=== PATIENT | male | born 1990 | race Caucasian/White ===

== ENCOUNTER 2019-01-04 12:04 | Emergency (ER) | payer SELFPAY | END 2019-01-04 14:29 | disposition home or self-care (01) | LOC: FER 12:04 ==

== ENCOUNTER 2019-05-30 18:12 | Emergency (ER) | payer SELFPAY ==
[2019-05-30 18:29] VITALS: BP 148/97; PULSE 69; TEMP 97.8; BMI 30.7
[2019-05-30] MEDS ORDERED: SODIUM CHLORIDE 1,000 ML IV SCH (18:30)
--- NOTE | 2019-05-30 18:33 | PDOC ---
History of Present Illness - General Chief Complaint: Pain Stated Complaint: RLA PAIN FOR SEVERAL MONTHS Time Seen by Provider: 05/30/19 18:23 History Source: Patient Exam Limitations: No Limitations - History of Present Illness Travel History: No Initial Comments: 05/30/19 18:30 28 y/o male with RLQ pain on/off for 3-4 months, worse today. No N/V/d/C. Denies fall or trauma. Saw doctor for this in the past and told it was not a hernia. Denies back pain, hematuria or dysuria. No fever or chills. Hx of colitis. Took Advil. No hx of stones in past. Pain Radiation: reports: no radiation Past History - Past Medical History Allergies/Adverse Reactions: Allergies Allergy/AdvReac Type Severity Reaction Status Date / Time No Known Allergies Allergy Verified 05/30/19 18:14 Home Medications: Ambulatory Orders NK [No Known Home Medication] 05/30/19 Asthma: Yes COPD: No GI Disorders: Yes (Ulcerative colitis.) Thyroid Disease: Yes (HYPOPARATHYROIDISM AN INFANT) - Surgical History Abdominal Surgery: (colonoscopy) - Psycho Social/Smoking Cessation Hx Smoking History: Never smoked Hx Alcohol Use: Yes (SOCIAL) Drug/Substance Use Hx: Yes (MARIJUANA) Substance Use Type: None Review of Systems - Review of Systems Able to Perform ROS?: Yes Is the patient limited [place] proficient: No Constitutional: No: Chills, Fever Respiratory: No: Cough, Shortness of Breath Cardiac (ROS): No: Chest Pain ABD/GI: No: Abdominal Distended, Diarrhea, Nausea, Vomiting : No: Burning, Dysuria, Hematuria All Other Systems: Reviewed and Negative *Physical Exam - Physical Exam General Appearance: Yes: Nourished, Appropriately Dressed. No: Apparent Distress HEENT: positive: EOMI, PRAVEENA, Normal ENT Inspection, Normal Voice Neck: positive: Trachea midline, Normal Thyroid, Supple. negative: Tender, Rigid Respiratory/Chest: positive: Lungs Clear, Normal Breath Sounds. negative: Chest Tender, Respiratory Distress Cardiovascular: positive: Regular Rhythm, Regular Rate, S1, S2. negative: Edema , JVD, Murmur Vascular Pulses: Femoral (R): 4+, Femoral (L): 4+, Carotid (R): 4+, Carotid (L) : 4+, Dorsalis-Pedis (R): 4+, Doralis-Pedis (L): 4+ Gastrointestinal/Abdominal: positive: Normal Bowel Sounds, Tender (RLQ tenderness, no RUQ, LUQ, or LLQ tenderness +BS), Flat, Soft. negative: Organomegaly, Pulsatile Mass Lymphatic: negative: Adenopathy, Tenderness, Other Musculoskeletal: positive: Normal Inspection. negative: CVA Tenderness Extremity: positive: Normal Capillary Refill, Normal Inspection, Normal Range of Motion Integumentary: positive: Normal Color, Dry, Warm Neurologic: positive: environmental compliance inspector II-XII NML intact, Fully Oriented, Alert, Normal Mood/ Affect, Normal Response, Motor Strength 5/ ED Progress Note - Progress Note Progress Note: 05/30/19 18:32 28 y/o male with RLQ tenderness, will obtain labs and CT abd/pelvis to r/o appendicitis. Case will be endorsed to Dr. Hester at 1900. Discharge - Discharge Information Problems reviewed: Yes Clinical Impression/Diagnosis: Abdominal pain Qualifiers: Abdominal location: right lower quadrant Qualified Code(s): R10.31 - Right lower quadrant pain - Follow up/Referral - Patient Discharge Instructions - Post Discharge Activity
[2019-05-30 19:27] LABS: BASO % 0.6 % (0-2.0); EOS % 2.7 % (0-4.5); HEMATOCRIT 50.1 % (35.4-49); HEMOGLOBIN 17.2 GM/dl (11.7-16.9); LYMPH % 24.5 % (8-40); MCH 31.2 pg (25.7-33.7); MCHC 34.3 g/dl (32.0-35.9); MEAN CELL VOLUME 90.9 fl (80-96); MEAN PLT VOLUME 7.7 fl (7.5-11.1); MONO % 5.5 % (3.8-10.2); NEUT % 66.7 % (42.8-82.8); PLATELET COUNT 242 K/MM3 (134-434); RBC 5.52 M/mm3 (4.00-5.60); RDW 12.1 % (11.9-15.9); WHITE BLOOD COUNT 9.1 K/mm3 (4.0-10.8)
[2019-05-30 19:35] LABS: ALBUMIN 5.2 g/dl (3.4-5.0); CALCIUM 9.9 mg/dl (8.5-10); POTASSIUM 3.6 mmol/L (3.5-5.1); TOT PROT 7.6 g/dl (6.4-8.2)
[2019-05-30] MEDS ORDERED: AMOX TR/POT CLAV 875MG/125MG TABLETS (FP) PO ONE (21:29)
[2019-05-30] MEDS ORDERED: AMOX TR/POT CLAV 875MG/125MG TABLETS (FP) ONE (21:32)
--- NOTE | 2019-05-30 21:32 | PDOC ---
*Physical Exam - Vital Signs Last Vital Signs Temp Pulse Resp BP Pulse Ox 97.8 F 69 20 148/97 100 05/30/19 18:13 05/30/19 18:13 05/30/19 18:13 05/30/19 18:13 05/30/19 18:13 ED Treatment Course - LABORATORY CBC & Chemistry Diagram: 05/30/19 19:10 05/30/19 19:10 - ADDITIONAL ORDERS Additional order review: Laboratory Results 05/30/19 05/30/19 19:10 19:10 Sodium 140 Potassium 3.6 Chloride 101 Carbon Dioxide 28 Anion Gap 11 BUN 15.0 Creatinine 1.0 Est GFR (CKD-EPI)AfAm 117.36 Est GFR (CKD-EPI)NonAf 101.26 Random Glucose 88 Calcium 9.9 Total Bilirubin 1.0 AST 30 ALT 64 H Alkaline Phosphatase 43 L Total Protein 7.6 Albumin 5.2 H Urine Color Yellow Urine Appearance Clear Urine pH 5.5 Urine Protein Negative Urine Glucose (UA) Negative Urine Ketones Negative Urine Blood Trace-intact Urine Nitrite Negative Urine Bilirubin Negative Urine Urobilinogen 0.2 Ur Leukocyte Esterase Negative Urine RBC 0-2 05/30/19 19:10 RBC 5.52 MCV 90.9 MCHC 34.3 RDW 12.1 MPV 7.7 Neutrophils % 66.7 Lymphocytes % 24.5 Monocytes % 5.5 Eosinophils % 2.7 Basophils % 0.6 Medical Decision Making - Medical Decision Making 05/30/19 21:[address] with chronic low grade diverticulitis will cover with abx gi fu Discharge - Discharge Information Problems reviewed: Yes Clinical Impression/Diagnosis: Diverticulitis large intestine Qualifiers: Diverticulitis bleeding: without bleeding Diverticulitis complication: without perforation or abscess Qualified Code(s): K57.32 - Diverticulitis of large intestine without perforation or abscess without bleeding Condition: Good Disposition: HOME - Follow up/Referral Referrals: Jeremías Herrera DO [Staff Physician] - Call tomorrow - Patient Discharge Instructions - Post Discharge Activity
== END 2019-05-30 21:38 | disposition home or self-care (01) ==
LOC: FER 18:12
PROC: 3E0337Z Introduction of Electrolytic and Water Balance Substance into Peripheral Vein, Percutaneous Approach (ICD-10-PCS; principal; 2019-05-30)
DX: R10.31 Right lower quadrant pain (principal); J45.909 Unspecified asthma, uncomplicated; K51.90 Ulcerative colitis, unspecified, without complications; E07.9 Disorder of thyroid, unspecified
CPT/HCPCS: 36415; 74177-TC; 80053; 81003; 81015; 85025; 99282-25; J7030

== ENCOUNTER 2022-05-28 15:43 | Emergency (ER) | payer SELFPAY ==
[2022-05-28 16:13] VITALS: BP 144/90; PULSE 90; RESP 16; TEMP 98.8; BMI 32.1
[2022-05-28] MEDS ORDERED: KETOROLAC TROMETHAMINE 15 MG/ML VIAL IVPUSH ONE (17:50)
[2022-05-28] MEDS ORDERED: ONDANSETRON 4 MG/2 ML VIAL IVPUSH ONE (17:50)
[2022-05-28] MEDS ORDERED: ACETAMINOPHEN 1000 MG/100 ML BAG IVPB ONE (17:52)
[2022-05-28] MEDS ORDERED: SODIUM CHLORIDE 0.9% 500 ML INFUS.BAG IV ONE (17:52)
[2022-05-28] MEDS ORDERED: ACETAMINOPHEN INJECTION 100 ML IVPB ONE (17:56)
[2022-05-28] MEDS ORDERED: ONDANSETRON 4 MG/2 ML VIAL ONE (17:56)
[2022-05-28] MEDS ORDERED: KETOROLAC TROMETHAMINE 15 MG/ML VIAL ONE (17:57)
[2022-05-28 18:37] LABS: HEMATOCRIT 46.9 % (35.4-49); MCH 30.4 pg (25.7-33.7); MCHC 34.2 g/dl (32.0-35.9); MEAN CELL VOLUME 88.8 fl (80-96); MEAN PLT VOLUME 7.5 fl (7.5-11.1); PLATELET COUNT 212.8 10^3/uL (134-434); RBC 5.28 10^6/uL (4.00-5.60); RDW 14.2 % (11.9-15.9)
[2022-05-28 18:45] LABS: ALBUMIN 4.4 g/dl (3.4-5.0); BILIRUBIN,TOTAL 0.9 mg/dl (0.2-1); CALCIUM 8.9 mg/dl (8.5-10); CREATININE 0.8 mg/dl (0.55-1.3); TOT PROT 7.1 g/dl (6.4-8.2)
[2022-05-28 18:57] LABS: PLATELET ESTIMATE ADEQUATE
== END 2022-05-28 19:53 | disposition home or self-care (01) ==
LOC: FER 15:43
PROC: 3E0333Z Introduction of Anti-inflammatory into Peripheral Vein, Percutaneous Approach (ICD-10-PCS; principal; 2022-05-28)
PROC: 3E0333Z Introduction of Anti-inflammatory into Peripheral Vein, Percutaneous Approach (ICD-10-PCS; 2022-05-28)
PROC: 3E033GC Introduction of Other Therapeutic Substance into Peripheral Vein, Percutaneous Approach (ICD-10-PCS; 2022-05-28)
DX: G43.909 Migraine, unspecified, not intractable, without status migrainosus (principal)
CPT/HCPCS: 36415; 76705-TC; 80053; 82550; 83690; 85025; 99284-25

== ENCOUNTER 2023-03-19 08:35 | Emergency (ER) | payer BC ==
[2023-03-19 08:42] VITALS: BP 150/89; PULSE 88; RESP 18; TEMP 99.4; BMI 33.9
[2023-03-19] MEDS ORDERED: ACETAMINOPHEN 500 MG TABLET (FP) PO ONE (08:46)
[2023-03-19] MEDS ORDERED: KETOROLAC TROMETHAMINE 15 MG/ML VIAL IVPUSH ONE (08:46)
[2023-03-19] MEDS ORDERED: SODIUM CHLORIDE 0.9% 500 ML INFUS.BAG IV ONE (08:46)
[2023-03-19] MEDS ORDERED: KETOROLAC TROMETHAMINE 15 MG/ML VIAL ONE (08:50)
[2023-03-19] MEDS ORDERED: ACETAMINOPHEN 500 MG TABLET (FP) ONE (08:50)
[2023-03-19 09:37] LABS: HEMATOCRIT 44.1 % (35.4-49); HEMOGLOBIN 15.1 G/dL (11.7-16.9); MCH 30.6 pg (25.7-33.7); MCHC 34.2 g/dl (32.0-35.9); MEAN CELL VOLUME 89.7 fl (80-96); MEAN PLT VOLUME 7.8 fl (7.5-11.1); PLATELET COUNT 243.3 10^3/uL (134-434); RBC 4.92 10^6/uL (4.00-5.60); RDW 13.2 % (11.9-15.9); WHITE BLOOD COUNT 11.3 10^3/uL (4.0-10.8)
[2023-03-19 09:41] LABS: ALBUMIN 4.7 g/dl (3.4-5.0); BLOOD UREA NITROGEN 14.4 mg/dl (7-18); CALCIUM 9.3 mg/dl (8.5-10.1); CREATININE 0.9 mg/dl (0.6-1.3); POTASSIUM 4.1 mmol/L (3.5-5.1); SGOT/AST 21.2 U/L (15-37); SGPT/ALT 33.5 U/L (7-52)
[2023-03-19 10:39] LABS: PLATELET ESTIMATE ADEQUATE
[2023-03-19 11:52] LABS: BILIRUBIN,TOTAL 1.2 mg/dL (0.2-1)
== END 2023-03-19 10:56 | disposition home or self-care (01) ==
LOC: FER 08:35
PROC: 3E033NZ Introduction of Analgesics, Hypnotics, Sedatives into Peripheral Vein, Percutaneous Approach (ICD-10-PCS; principal; 2023-03-19)
DX: R10.31 Right lower quadrant pain (principal); R10.32 Left lower quadrant pain; K57.92 Diverticulitis of intestine, part unspecified, without perforation or abscess without bleeding
CPT/HCPCS: 36415; 74177-TC; 80053; 83605; 83690; 85027; 86140; 99285-25; Q9967

== ENCOUNTER 2023-07-19 08:02 | Emergency (ER) | payer BC ==
[2023-07-19 08:16] VITALS: BP 122/81; PULSE 86; RESP 18; TEMP 99.4; BMI 32.5
[2023-07-19] MEDS ORDERED: ACETAMINOPHEN 325 MG TABLET (FP) PO ONE (08:30)
[2023-07-19] MEDS ORDERED: ACETAMINOPHEN 325 MG TABLET (FP) ONE (08:34)
== END 2023-07-19 08:48 | disposition home or self-care (01) ==
LOC: FER 08:02
DX: S46.911A Strain of unspecified muscle, fascia and tendon at shoulder and upper arm level, right arm, initial encounter (principal); J06.9 Acute upper respiratory infection, unspecified; M25.511 Pain in right shoulder; R07.89 Other chest pain; R09.81 Nasal congestion; R50.9 Fever, unspecified; R05.9 Cough, unspecified; X50.0XXA Overexertion from strenuous movement or load, initial encounter; Y93.89 Activity, other specified; Z20.822 Contact with and (suspected) exposure to COVID-19
CPT/HCPCS: 0241U-QW; 99283-25

== ENCOUNTER 2023-11-17 07:18 | Inpatient (IN) | payer BC ==
[2023-11-17] MEDS ORDERED: ACETAMINOPHEN INJECTION 100 ML IVPB ONE (07:48)
[2023-11-17] MEDS ORDERED: morphine SULFATE 4 MG/ML VIAL ONE ×2 (07:48→09:50)
[2023-11-17] MEDS ORDERED: ONDANSETRON 4 MG/2 ML VIAL ONE (07:48)
[2023-11-17] MEDS: LACTATED RINGERS SOLUTION 1000 ML INFUS.BAG IV ONE (08:02)
[2023-11-17] MEDS: morphine CARPU-JECT 4 MG/1 ML DISP.SYRIN IVPUSH ONE ×2 (08:02→09:55)
[2023-11-17] MEDS: ONDANSETRON 4 MG/2 ML VIAL IVPUSH ONE (08:03)
[2023-11-17] MEDS: ACETAMINOPHEN 1000 MG/100 ML BAG IVPB ONE (08:03)
[2023-11-17 08:25] LABS: INR 1.12 (0.83-1.09); PROTHROMBIN TIME (PATIENT) 12.7 SEC (9.7-13.0)
[2023-11-17 08:27] LABS: ACTIVATED PTT 34.6 SECONDS (25.2-36.5); HEMATOCRIT 44.8 % (35.4-49); HEMOGLOBIN 15.1 G/dL (11.7-16.9); MCH 30.4 pg (25.7-33.7); MCHC 33.7 g/dl (32.0-35.9); MEAN CELL VOLUME 90.1 fl (80-96); MEAN PLT VOLUME 8.3 fl (7.5-11.1); PLATELET COUNT 214.9 10^3/uL (134-434); RBC 4.97 10^6/uL (4.00-5.60); WHITE BLOOD COUNT 11.7 10^3/uL (4.0-10.8)
[2023-11-17 08:34] LABS: ALBUMIN 4.6 g/dl (3.4-5.0); ALK PHOS 52 U/L (45-117); ANION GAP 10 mmol/L (4-13); BILIRUBIN,TOTAL 1.6 mg/dl (0.2-1); CALCIUM 9.4 mg/dl (8.5-10.1); CHLORIDE 103 mmol/L (98-107); CO2 27 mmol/L (21-32); CREATININE 1.1 mg/dl (0.6-1.3); GLUCOSE,RANDOM 94 mg/dl (74-106); POTASSIUM 3.6 mmol/L (3.5-5.1); SGOT/AST 14 U/L (15-37); SGPT/ALT 33 U/L (7-52); SODIUM 140 mmol/L (136-145); TOT PROT 6.9 g/dl (6.4-8.2)
[2023-11-17 09:16] LABS: EPITHELIAL CELLS 0-5 /hpf; URINE MUCUS MODERATE
[2023-11-17 09:17] LABS: PLATELET ESTIMATE ADEQUATE
[2023-11-17] MEDS: CIPROFLOXACIN 400 MG/D5W 400 MG/200 ML IVPB IVPB ONE (10:24)
[2023-11-17] MEDS ORDERED: CIPROFLOXACIN 400 MG/D5W 400 MG/200 ML IVPB IVPB ONE (10:24)
[2023-11-17] MEDS ORDERED: HYDROmorphone HCL/PF 1 MG/ML VIAL ONE (11:17)
[2023-11-17] MEDS: HYDROmorphone HCl 2 MG/ML VIAL IVPUSH ONE (11:21)
[2023-11-17] MEDS: DEXTROSE 5%-0.45% SALINE 1,000 ML IV SCH (13:02)
[2023-11-17 13:05] VITALS: RESP 18
[2023-11-17] MEDS: ACETAMINOPHEN 1000 MG/100 ML BAG IVPB PRN (13:54)
[2023-11-17 19:26] VITALS: BMI 34.2
[2023-11-18 08:12] LABS: HEMATOCRIT 42.3 % (35.4-49); HEMOGLOBIN 14.4 G/dL (11.7-16.9); MCH 30.5 pg (25.7-33.7); MCHC 34.1 g/dl (32.0-35.9); MEAN CELL VOLUME 89.2 fl (80-96); MEAN PLT VOLUME 8.1 fl (7.5-11.1); PLATELET COUNT 212.7 10^3/uL (134-434); RBC 4.74 10^6/uL (4.00-5.60); RDW 13.2 % (11.9-15.9); WHITE BLOOD COUNT 8.1 10^3/uL (4.0-10.8)
[2023-11-18 08:35] LABS: INR 1.09 (0.83-1.09); PROTHROMBIN TIME (PATIENT) 12.4 SEC (9.7-13.0)
[2023-11-18] MEDS: KETOROLAC TROMETHAMINE 30 MG/1 ML VIAL IVPUSH PRN (08:50)
[2023-11-18 09:18] LABS: ALBUMIN 4.2 g/dl (3.4-5.0); ALK PHOS 50 U/L (45-117); ANION GAP 8 mmol/L (4-13); CALCIUM 9.1 mg/dl (8.5-10.1); CHLORIDE 105 mmol/L (98-107); CO2 29 mmol/L (21-32); CREATININE 0.9 mg/dl (0.6-1.3); GLUCOSE,RANDOM 95 mg/dl (74-106); MAGNESIUM 2.3 mg/dL (1.8-2.4); PHOSPHOROUS 3.1 (2.5-4.9); SGOT/AST 15 U/L (15-37); SGPT/ALT 26 U/L (7-52); SODIUM 142 mmol/L (136-145); TOT PROT 6.3 g/dl (6.4-8.2)
[2023-11-18] MEDS: CEFTRIAXONE 1 GM in DEXTROSE 5%-WATER - 50 ML IVPB SCH (10:02)
[2023-11-19] MEDS: PIPERACILLIN/TAZOB 3.375 GM 3.375 GM in DEXTROSE 5%-WATER - 50 ML IVPB SCH (13:51)
[2023-11-20 06:38] VITALS: PULSE 50
[2023-11-20 08:28] LABS: HEMATOCRIT 42.3 % (35.4-49); HEMOGLOBIN 14.7 G/dL (11.7-16.9); MCH 30.9 pg (25.7-33.7); MCHC 34.8 g/dl (32.0-35.9); MEAN PLT VOLUME 7.9 fl (7.5-11.1); PLATELET COUNT 233.3 10^3/uL (134-434); RBC 4.75 10^6/uL (4.00-5.60); RDW 12.9 % (11.9-15.9); WHITE BLOOD COUNT 6.2 10^3/uL (4.0-10.8)
[2023-11-20 09:07] LABS: ALBUMIN 4.2 g/dl (3.4-5.0); ALK PHOS 46 U/L (45-117); ANION GAP 7 mmol/L (4-13); BILIRUBIN,TOTAL 0.6 mg/dl (0.2-1); CALCIUM 9.1 mg/dl (8.5-10.1); CHLORIDE 109 mmol/L (98-107); CO2 26 mmol/L (21-32); CREATININE 0.9 mg/dl (0.6-1.3); GLUCOSE,RANDOM 108 mg/dl (74-106); POTASSIUM 3.9 mmol/L (3.5-5.1); SGOT/AST 17 U/L (15-37); SGPT/ALT 27 U/L (7-52); SODIUM 142 mmol/L (136-145); TOT PROT 6.3 g/dl (6.4-8.2)
[2023-11-20 11:59] VITALS: BP 128/74
[2023-11-20 12:15] VITALS: TEMP 98.4
== END 2023-11-20 14:01 | disposition home or self-care (01) | DRG 392 ==
LOC: FER 07:18 → FM/S 10:38
PROVIDERS: ADMIT Internal Medicine
DX: K57.20 Diverticulitis of large intestine with perforation and abscess without bleeding (principal); E80.6 Other disorders of bilirubin metabolism; E66.9 Obesity, unspecified; Z68.34 Body mass index [BMI] 34.0-34.9, adult
CPT/HCPCS: 36415; 74177-TC; 80053; 81003; 81015; 83605; 83690; 83735; 84100; 85027; 85610; 85730; 86140; 87086; 99285-25; J0131; Q9967

== ENCOUNTER 2024-01-18 10:48 | Inpatient (IN) | payer OTHER, BC ==
[2024-01-18] MEDS ORDERED: ACETAMINOPHEN INJECTION 100 ML IVPB ONE ×2 (12:19→22:21)
[2024-01-18 12:22] LABS: BASO % 0.3 % (0-2.0); EOS % 0.4 % (0-4.5); HEMATOCRIT 44.1 % (35.4-49); HEMOGLOBIN 15.5 GM/dL (11.7-16.9); LYMPH % 4.2 % (8-40); MCH 30.5 pg (25.7-33.7); MCHC 35.1 g/dl (32.0-35.9); MEAN PLT VOLUME 7.5 fl (7.5-11.1); NEUT % 89.1 % (42.8-82.8); PLATELET COUNT 203 10^3/uL (134-434); RBC 5.07 M/mm3 (4.00-5.60); RDW 14.1 % (11.9-15.9); WHITE BLOOD COUNT 13.5 K/mm3 (4.0-10.0)
[2024-01-18] MEDS: ACETAMINOPHEN 1000 MG/100 ML BAG IVPB ONE (12:27)
[2024-01-18 12:31] LABS: INR 1.04 (0.83-1.09); PROTHROMBIN TIME (PATIENT) 11.9 SEC (9.7-13.0)
[2024-01-18 12:34] LABS: ACTIVATED PTT 32.1 SECONDS (25.2-36.5)
[2024-01-18 12:47] LABS: BLOOD UREA NITROGEN 15.1 mg/dL (7-18); CALCIUM 9.2 mg/dL (8.5-10.1)
[2024-01-18 12:48] LABS: ALBUMIN 4.4 g/dl (3.4-5.0)
[2024-01-18 12:50] LABS: CREATININE 1.2 mg/dL (0.55-1.3)
[2024-01-18 12:52] LABS: BILIRUBIN,TOTAL 1.6 mg/dL (0.2-1); TOT PROT 7.2 g/dl (6.4-8.2)
[2024-01-18] MEDS ORDERED: CEFTRIAXONE 1 GM/50 ML BAG ONE (17:24)
[2024-01-18] MEDS: CEFTRIAXONE 1,000 MG in DEXTROSE 5%-WATER - 50 ML IVPB ONE (17:35)
[2024-01-18] MEDS: LACTATED RINGERS SOLUTION 1,000 ML/1,000 ML INFUS.BAG IV SCH (19:17)
[2024-01-18 22:26] LABS: PH,URINE 5.5 (5.0-8.0); URINE APPEARANCE CLEAR; URINE BILIRUBIN NEGATIVE (NEGATIVE); URINE COLOR YELLOW; URINE GLUCOSE (UA) NEGATIVE (NEGATIVE); URINE KETONE NEGATIVE (NEGATIVE); URINE LEUK ESTERASE NEGATIVE (NEGATIVE); URINE NITRITE NEGATIVE (NEGATIVE); URINE PROTEIN NEGATIVE (NEGATIVE)
[2024-01-18] MEDS: ACETAMINOPHEN 1000 MG/100 ML BAG IVPB PRN (22:40)
[2024-01-19] MEDS ORDERED: INDOCYANINE GREEN 25 MG/10 ML VIAL IVPUSH ONE (07:18)
[2024-01-19] MEDS ORDERED: BUPIVACAINE HCL/PF 0.25% (2.5MG/ML) 10 ML VIAL ONE (07:18)
[2024-01-19] MEDS ORDERED: cefOXitin SODIUM 2 GM VIAL (RESTRICTED TO ID) IVPB ONE (07:19)
[2024-01-19] MEDS ORDERED: HEPARIN NA (PORCINE) 5,000 UNITS/ML 1ML VIAL ONE (07:19)
[2024-01-19 08:04] LABS: BASO % 0.3 % (0-2.0); EOS % 0.3 % (0-4.5); HEMATOCRIT 42.2 % (35.4-49); LYMPH % 5.5 % (8-40); MCH 31.3 pg (25.7-33.7); MCHC 35.4 g/dl (32.0-35.9); MEAN CELL VOLUME 88.3 fl (80-96); MEAN PLT VOLUME 8.2 fl (7.5-11.1); MONO % 7.7 % (3.8-10.2); NEUT % 86.2 % (42.8-82.8); PLATELET COUNT 160 10^3/uL (134-434); RBC 4.78 M/mm3 (4.00-5.60); RDW 13.9 % (11.9-15.9); WHITE BLOOD COUNT 7.9 K/mm3 (4.0-10.0)
[2024-01-19 08:20] LABS: POTASSIUM 3.4 mmol/L (3.5-5.1)
[2024-01-19 08:24] LABS: BLOOD UREA NITROGEN 14.3 mg/dL (7-18); CALCIUM 8.6 mg/dL (8.5-10.1)
[2024-01-19] MEDS ORDERED: KETOROLAC TROMETHAMINE 15 MG/ML VIAL ONE (08:54)
[2024-01-19] MEDS ORDERED: ONDANSETRON 4 MG/2 ML VIAL ONE (08:54)
[2024-01-19] MEDS ORDERED: CEFTRIAXONE 1 GM/50 ML BAG ONE (08:54)
[2024-01-19] MEDS: CEFTRIAXONE 1 GM in DEXTROSE 5%-WATER - 50 ML IVPB SCH (09:05)
[2024-01-19] MEDS: KETOROLAC TROMETHAMINE 15 MG/ML VIAL IVPUSH PRN (09:12)
[2024-01-19] MEDS: ONDANSETRON 4 MG/2 ML VIAL IVPUSH PRN (09:13)
[2024-01-19] MEDS: ACETAMINOPHEN 1000 MG/100 ML BAG IVPB PRN (18:30)
[2024-01-19 18:55] VITALS: BMI 33.9
[2024-01-20 09:36] LABS: INR 1.04 (0.83-1.09)
[2024-01-20 09:39] LABS: ACTIVATED PTT 29.3 SECONDS (25.2-36.5); BASO % 0.4 % (0-2.0); EOS % 1.3 % (0-4.5); HEMATOCRIT 39.6 % (35.4-49); HEMOGLOBIN 14.3 GM/dL (11.7-16.9); LYMPH % 13.5 % (8-40); MCH 31.2 pg (25.7-33.7); MCHC 36.1 g/dl (32.0-35.9); MEAN CELL VOLUME 86.4 fl (80-96); MEAN PLT VOLUME 7.9 fl (7.5-11.1); MONO % 10.2 % (3.8-10.2); NEUT % 74.6 % (42.8-82.8); PLATELET COUNT 164 10^3/uL (134-434); RBC 4.58 M/mm3 (4.00-5.60); RDW 13.7 % (11.9-15.9); WHITE BLOOD COUNT 5.3 K/mm3 (4.0-10.0)
[2024-01-20 09:49] LABS: POTASSIUM 3.7 mmol/L (3.5-5.1)
[2024-01-20 10:06] LABS: BLOOD UREA NITROGEN 12.6 mg/dL (7-18); CALCIUM 8.7 mg/dL (8.5-10.1)
[2024-01-20 10:09] LABS: ALBUMIN 3.7 g/dl (3.4-5.0); MAGNESIUM 2.3 mg/dL (1.8-2.4); PHOSPHOROUS 2.8 mg/dL (2.5-4.9)
[2024-01-20 10:10] LABS: BILIRUBIN,TOTAL 1.2 mg/dL (0.2-1); TOT PROT 6.7 g/dl (6.4-8.2)
[2024-01-20 10:12] LABS: CREATININE 0.9 mg/dL (0.55-1.3)
[2024-01-20] MEDS: ACETAMINOPHEN 1000 MG/100 ML BAG IVPB ONE (23:01)
[2024-01-21 09:40] LABS: BASO % 0.4 % (0-2.0); EOS % 2.6 % (0-4.5); HEMATOCRIT 39.4 % (35.4-49); HEMOGLOBIN 14.1 GM/dL (11.7-16.9); LYMPH % 22.2 % (8-40); MCH 30.8 pg (25.7-33.7); MCHC 35.8 g/dl (32.0-35.9); MEAN CELL VOLUME 86.1 fl (80-96); MEAN PLT VOLUME 7.9 fl (7.5-11.1); MONO % 10.6 % (3.8-10.2); NEUT % 64.2 % (42.8-82.8); PLATELET COUNT 192 10^3/uL (134-434); RBC 4.58 M/mm3 (4.00-5.60); RDW 13.8 % (11.9-15.9)
[2024-01-21 09:59] LABS: POTASSIUM 3.8 mmol/L (3.5-5.1)
[2024-01-21 10:09] LABS: ALBUMIN 3.7 g/dl (3.4-5.0); BLOOD UREA NITROGEN 12.9 mg/dL (7-18)
[2024-01-21 10:10] LABS: TOT PROT 6.4 g/dl (6.4-8.2)
[2024-01-21 10:11] LABS: CALCIUM 8.9 mg/dL (8.5-10.1); CREATININE 0.9 mg/dL (0.55-1.3); MAGNESIUM 2.4 mg/dL (1.8-2.4)
[2024-01-21] MEDS: PIPERACILLIN/TAZOB 3.375 GM 3.375 GM in DEXTROSE 5%-WATER - 50 ML IVPB SCH (11:52)
[2024-01-21] MEDS: LACTATED RINGERS SOLUTION 1,000 ML/1,000 ML INFUS.BAG IV SCH (13:34)
[2024-01-21 23:52] VITALS: RESP 20
[2024-01-22 06:58] VITALS: BP 134/75; PULSE 61; TEMP 98.6
[2024-01-22 08:14] LABS: BASO % 0.5 % (0-2.0); EOS % 3.3 % (0-4.5); HEMATOCRIT 40.5 % (35.4-49); HEMOGLOBIN 14.4 GM/dL (11.7-16.9); LYMPH % 22.1 % (8-40); MCHC 35.5 g/dl (32.0-35.9); MEAN CELL VOLUME 87.4 fl (80-96); MEAN PLT VOLUME 7.7 fl (7.5-11.1); NEUT % 66.1 % (42.8-82.8); PLATELET COUNT 225 10^3/uL (134-434); RBC 4.63 M/mm3 (4.00-5.60); RDW 13.5 % (11.9-15.9); WHITE BLOOD COUNT 7.6 K/mm3 (4.0-10.0)
[2024-01-22 08:20] LABS: POTASSIUM 4.1 mmol/L (3.5-5.1)
[2024-01-22 08:24] LABS: ALBUMIN 3.9 g/dl (3.4-5.0); BLOOD UREA NITROGEN 10.7 mg/dL (7-18); MAGNESIUM 2.3 mg/dL (1.8-2.4)
[2024-01-22 08:29] LABS: BILIRUBIN,TOTAL 0.9 mg/dL (0.2-1); TOT PROT 6.9 g/dl (6.4-8.2)
== END 2024-01-22 10:47 | disposition home or self-care (01) | DRG 244 ==
LOC: JER 10:48 → JERBED 16:38 → J8W 01-19 17:58
PROVIDERS: ADMIT Internal Medicine; ATTEND Nurse Practitioner Acute Care
DX: K57.32 Diverticulitis of large intestine without perforation or abscess without bleeding (principal); M54.2 Cervicalgia; R11.10 Vomiting, unspecified; E80.6 Other disorders of bilirubin metabolism; R50.9 Fever, unspecified; J45.909 Unspecified asthma, uncomplicated; E87.6 Hypokalemia; E66.9 Obesity, unspecified; N50.89 Other specified disorders of the male genital organs; D72.829 Elevated white blood cell count, unspecified; V89.2XXA Person injured in unspecified motor-vehicle accident, traffic, initial encounter; Y92.488 Other paved roadways as the place of occurrence of the external cause; Y99.9 Unspecified external cause status; Z68.30 Body mass index [BMI] 30.0-30.9, adult
CPT/HCPCS: 0241U-QW; 36415; 70450-TC; 71046-TC-FY; 74177-TC; 80048; 80053; 81003; 83605; 83735; 84100; 85025; 85610; 85730; 86140; 86850; 86900; 86901; 87040; 87086; 93005; 93010; 99285-25; J0131; J1644

== ENCOUNTER 2024-01-27 04:22 | Inpatient (IN) | payer BC, OTHER ==
[2024-01-27] MEDS: POLYETHYLENE GLYCOL 3350 255 GM BTL PO ONE (10:43)
[2024-01-27] MEDS: BISACODYL 5 MG TABLET.DR (FP) PO ONE (13:06)
[2024-01-27] MEDS: metroNIDAZOLE 500 MG TABLET PO SCH (13:06)
[2024-01-27] MEDS: NEOMYCIN SO4 500 MG TABLET PO SCH (13:07)
[2024-01-27 14:50] VITALS: BMI 34.3
[2024-01-27] MEDS: ONDANSETRON 4 MG/2 ML VIAL IVPUSH ONE (18:25)
[2024-01-27] MEDS: SODIUM CHLORIDE 1,000 ML IV SCH (18:27)
[2024-01-27 19:08] VITALS: RESP 18
[2024-01-27] MEDS ORDERED: ALBUTEROL SO4 HFA INHALER IH PRN (19:33)
[2024-01-27] MEDS ORDERED: ONDANSETRON 4 MG/2 ML VIAL IVPUSH PRN (21:04)
[2024-01-28] MEDS: CEFOXITIN SODIUM 2 GM in DEXTROSE 5%-WATER - 100 ML IVPB ONE ×2 (08:12→12:58)
[2024-01-28] MEDS: HEPARIN NA (PORCINE) 5,000 UNITS/ML 1ML VIAL SQ ONE (08:13)
[2024-01-28 10:23] LABS: BASO % 0.5 % (0-2.0); EOS % 2.4 % (0-4.5); HEMATOCRIT 41.3 % (35.4-49); HEMOGLOBIN 14.5 GM/dL (11.7-16.9); MCH 30.5 pg (25.7-33.7); MEAN PLT VOLUME 7.2 fl (7.5-11.1); MONO % 7.4 % (3.8-10.2); NEUT % 71.7 % (42.8-82.8); PLATELET COUNT 319 10^3/uL (134-434); RBC 4.75 M/mm3 (4.00-5.60); RDW 13.7 % (11.9-15.9); WHITE BLOOD COUNT 12.5 K/mm3 (4.0-10.0)
[2024-01-28] MEDS ORDERED: cefOXitin SODIUM 2 GM VIAL (RESTRICTED TO ID) IVPB ONE (11:45)
[2024-01-28] MEDS ORDERED: INDOCYANINE GREEN 25 MG/10 ML VIAL IVPUSH ONE (11:45)
[2024-01-28] MEDS ORDERED: BUPIVACAINE HCL/PF 0.25% (2.5MG/ML) 10 ML VIAL ONE (11:45)
[2024-01-28] MEDS ORDERED: HEPARIN NA (PORCINE) 5,000 UNITS/ML 1ML VIAL ONE (11:45)
[2024-01-28 12:07] LABS: CALCIUM 8.9 mg/dL (8.5-10.1); POTASSIUM 4.1 mmol/L (3.5-5.1)
[2024-01-28 12:08] LABS: BLOOD UREA NITROGEN 17.1 mg/dL (7-18)
[2024-01-28] MEDS: SODIUM PHOSPHATE/NA BIPHOS 133 ML ENEMA RC ONE (13:03)
[2024-01-28] MEDS ORDERED: ACETAMINOPHEN 325 MG TABLET (FP) PO PRN (21:47)
[2024-01-28] MEDS: ACETAMINOPHEN 325 MG TABLET (FP) PO PRN (21:52)
[2024-01-29 15:43] VITALS: BP 128/70; PULSE 60; TEMP 98.4
== END 2024-01-29 17:18 | disposition home or self-care (01) | DRG 392 ==
LOC: J2C 04:22 → J5S 14:01 → J8W 01-28 18:25
PROVIDERS: ADMIT Surgery
DX: K57.32 Diverticulitis of large intestine without perforation or abscess without bleeding (principal); I49.8 Other specified cardiac arrhythmias; R10.9 Unspecified abdominal pain; N49.2 Inflammatory disorders of scrotum; J45.909 Unspecified asthma, uncomplicated; Z53.8 Procedure and treatment not carried out for other reasons
CPT/HCPCS: 36415; 80048; 85025; 93005; 93010; J1644

== ENCOUNTER 2024-02-04 05:12 | Inpatient (IN) | payer BC ==
[2024-02-02 11:58] VITALS: BMI 34.3
[2024-02-04] MEDS: ACETAMINOPHEN 500 MG TABLET (FP) PO ONE ×2 (06:54)
[2024-02-04] MEDS ORDERED: BUPIVACAINE HCL/PF 0.25% (2.5MG/ML) 10 ML VIAL ONE (07:16)
[2024-02-04] MEDS ORDERED: INDOCYANINE GREEN 25 MG/10 ML VIAL IVPUSH ONE ×3 (07:16→13:54)
[2024-02-04] MEDS ORDERED: cefOXitin SODIUM 2 GM VIAL (RESTRICTED TO ID) IVPB ONE (07:16)
[2024-02-04] MEDS ORDERED: ROCURONIUM BROMIDE 50 MG/5 ML SYRINGE ONE ×2 (07:56→13:43)
[2024-02-04] MEDS ORDERED: MIDAZOLAM HCL 2 MG/2 ML SINGLE DOSE VIAL ONE (07:56)
[2024-02-04] MEDS ORDERED: PROPOFOL 40 ML ONE (07:56)
[2024-02-04] MEDS ORDERED: SUCCINYLCHOLINE CHLORIDE 200 MG/10 ML SYRINGE ONE (07:57)
[2024-02-04] MEDS ORDERED: ALBUTEROL SO4 HFA INHALER IH ONE (08:09)
[2024-02-04] MEDS ORDERED: MINERAL OIL/PETROLATUM,WHITE 3.5 GM TUBE ONE (08:09)
[2024-02-04] MEDS ORDERED: DEXMEDETOMIDINE HCL 200 MCG/2 ML IVPB ONE (08:11)
[2024-02-04] MEDS ORDERED: DEXAMETHASONE SOD PHOSPHATE 10 MG/1 ML VIAL ONE (08:11)
[2024-02-04] MEDS: cefOXitin SODIUM 2 GM VIAL (RESTRICTED TO ID) IVPB ONE ×2 (08:43)
[2024-02-04] MEDS: INDOCYANINE GREEN 25 MG/10 ML VIAL IVPUSH ONE ×2 (08:57→08:58)
[2024-02-04] MEDS ORDERED: HYDROmorphone HCl 2 MG/ML VIAL ONE (08:57)
[2024-02-04] MEDS ORDERED: PROPOFOL 20 ML ONE ×2 (09:01→14:35)
[2024-02-04] MEDS: BUPIVACAINE HCL/PF 0.25% (2.5MG/ML) 10 ML VIAL IJ ONE ×2 (09:25)
[2024-02-04] MEDS ORDERED: TRANEXAMIC ACID 1000 MG/10 ML VIAL ONE (14:09)
[2024-02-04] MEDS ORDERED: KETOROLAC TROMETHAMINE 30 MG/1 ML VIAL ONE (14:38)
[2024-02-04] MEDS ORDERED: SUGAMMADEX SODIUM 200 MG/2 ML VIAL ONE (14:54)
[2024-02-04] MEDS ORDERED: POVIDONE-IODINE OINTMENT 10% - 28.4 GM TUBE ONE (15:03)
[2024-02-04] MEDS: POVIDONE-IODINE OINTMENT 10% - 28.4 GM TUBE TP ONE (15:10)
[2024-02-04] MEDS ORDERED: oxyCODONE HCL 5 MG TABLET PO PRN (15:23)
[2024-02-04] MEDS ORDERED: ONDANSETRON 4 MG/2 ML VIAL IVPUSH PRN (15:23)
[2024-02-04] MEDS: ACETAMINOPHEN 1000 MG/100 ML BAG IVPB SCH (15:30)
[2024-02-04] MEDS: ONDANSETRON 4 MG/2 ML VIAL IVPUSH PRN ×2 (16:18→20:25)
[2024-02-04] MEDS: LACTATED RINGERS SOLUTION 1,000 ML IV SCH (16:19)
[2024-02-04] MEDS ORDERED: ONDANSETRON 4 MG/2 ML VIAL ONE (16:20)
[2024-02-04] MEDS ORDERED: ceFAZolin SODIUM 1 GM VIAL ONE (17:06)
[2024-02-04] MEDS: CEFAZOLIN SODIUM 2 GM in DEXTROSE 5%-WATER 100 ML IVPB SCH (17:11)
[2024-02-04] MEDS: CEFOXITIN SODIUM 2 GM in DEXTROSE 5%-WATER - 100 ML IVPB ONE (18:24)
[2024-02-04] MEDS: oxyCODONE HCL 5 MG TABLET PO PRN (19:29)
[2024-02-04] MEDS ORDERED: ALBUTEROL SO4 HFA INHALER IH PRN (20:27)
[2024-02-05 07:19] LABS: HEMATOCRIT 38.3 % (35.4-49); HEMOGLOBIN 13.5 GM/dL (11.7-16.9); MCH 30.4 pg (25.7-33.7); MCHC 35.2 g/dl (32.0-35.9); MEAN CELL VOLUME 86.6 fl (80-96); MEAN PLT VOLUME 7.6 fl (7.5-11.1); PLATELET COUNT 282 10^3/uL (134-434); RBC 4.42 M/mm3 (4.00-5.60); RDW 13.8 % (11.9-15.9); WHITE BLOOD COUNT 13.7 K/mm3 (4.0-10.0)
[2024-02-05 07:50] LABS: BLOOD UREA NITROGEN 12.4 mg/dL (7-18); CALCIUM 8.4 mg/dL (8.5-10.1)
[2024-02-05 07:53] LABS: CREATININE 0.8 mg/dL (0.55-1.3)
[2024-02-05] MEDS: ENOXAPARIN NA (PORCINE) 40 MG/0.4 ML DISP.SYRIN SQ SCH (09:21)
[2024-02-05] MEDS: KETOROLAC TROMETHAMINE 15 MG/ML VIAL IVPUSH SCH (11:39)
[2024-02-05] MEDS: LACTATED RINGERS SOLUTION 1,000 ML IV SCH (11:54)
[2024-02-05] MEDS: KETOROLAC TROMETHAMINE 15 MG/ML VIAL IVPB SCH (11:55)
[2024-02-05] MEDS: LACTATED RINGERS SOLUTION 1,000 ML/1,000 ML INFUS.BAG IV SCH (14:38)
[2024-02-05] MEDS: KETOROLAC TROMETHAMINE 15 MG/ML VIAL IVPUSH ONE (14:39)
[2024-02-05] MEDS: KETOROLAC TROMETHAMINE 15 MG/ML VIAL IM ONE (15:48)
[2024-02-05] MEDS: ACETAMINOPHEN 500 MG TABLET (FP) PO SCH (20:46)
[2024-02-06] MEDS: IBUPROFEN 600 MG TABLET (FP) PO SCH (11:23)
[2024-02-06] MEDS: ACETAMINOPHEN 500 MG TABLET (FP) PO SCH (11:23)
[2024-02-06] MEDS: PANTOPRAZOLE SOD 40 MG SUSPENSION PACKET PO SCH (12:17)
[2024-02-06 13:16] LABS: BASO % 0.3 % (0-2.0); EOS % 1.5 % (0-4.5); HEMOGLOBIN 13.6 GM/dL (11.7-16.9); LYMPH % 21.8 % (8-40); MCH 30.8 pg (25.7-33.7); MCHC 35.8 g/dl (32.0-35.9); MEAN CELL VOLUME 86.1 fl (80-96); MEAN PLT VOLUME 7.7 fl (7.5-11.1); MONO % 8.7 % (3.8-10.2); NEUT % 67.7 % (42.8-82.8); PLATELET COUNT 257 10^3/uL (134-434); RBC 4.42 M/mm3 (4.00-5.60); WHITE BLOOD COUNT 8.8 K/mm3 (4.0-10.0)
[2024-02-06 13:45] LABS: POTASSIUM 3.7 mmol/L (3.5-5.1)
[2024-02-06 13:47] LABS: CALCIUM 9.1 mg/dL (8.5-10.1)
[2024-02-06 13:48] LABS: ALBUMIN 3.8 g/dl (3.4-5.0); BLOOD UREA NITROGEN 6.6 mg/dL (7-18); MAGNESIUM 2.2 mg/dL (1.8-2.4)
[2024-02-06 13:51] LABS: CREATININE 0.9 mg/dL (0.55-1.3)
[2024-02-06 13:52] LABS: BILIRUBIN,TOTAL 0.9 mg/dL (0.2-1); TOT PROT 6.6 g/dl (6.4-8.2)
[2024-02-06] MEDS: MELATONIN 5 MG TABLETS PO ONE (21:06)
[2024-02-06] MEDS: oxyCODONE HCL 5 MG TABLET PO ONE (21:07)
[2024-02-06 23:47] VITALS: RESP 18
[2024-02-07 09:11] LABS: BASO % 0.3 % (0-2.0); EOS % 3.1 % (0-4.5); HEMATOCRIT 40.8 % (35.4-49); HEMOGLOBIN 14.5 GM/dL (11.7-16.9); LYMPH % 19.2 % (8-40); MCH 30.6 pg (25.7-33.7); MCHC 35.5 g/dl (32.0-35.9); MEAN CELL VOLUME 86.2 fl (80-96); MEAN PLT VOLUME 7.6 fl (7.5-11.1); MONO % 5.7 % (3.8-10.2); NEUT % 71.7 % (42.8-82.8); PLATELET COUNT 276 10^3/uL (134-434); RBC 4.74 M/mm3 (4.00-5.60); RDW 14.1 % (11.9-15.9); WHITE BLOOD COUNT 8.8 K/mm3 (4.0-10.0)
[2024-02-07] MEDS: PANTOPRAZOLE 40 MG TABLET PO SCH (09:26)
[2024-02-07 09:28] LABS: POTASSIUM 3.8 mmol/L (3.5-5.1)
[2024-02-07] MEDS: BACLOFEN 10 MG TABLET (FP) PO PRN (09:33)
[2024-02-07 09:37] LABS: ALBUMIN 3.8 g/dl (3.4-5.0); BLOOD UREA NITROGEN 10.6 mg/dL (7-18); CALCIUM 8.9 mg/dL (8.5-10.1); MAGNESIUM 2.1 mg/dL (1.8-2.4)
[2024-02-07 09:40] LABS: CREATININE 0.9 mg/dL (0.55-1.3)
[2024-02-07 09:41] LABS: BILIRUBIN,TOTAL 1.3 mg/dL (0.2-1); TOT PROT 6.8 g/dl (6.4-8.2)
[2024-02-07] MEDS: morphine SULFATE IMMEDIATE RELEASE 30 MG TAB PO ONE (11:00)
[2024-02-07 15:25] VITALS: BP 152/79; PULSE 74; TEMP 99.1
== END 2024-02-07 17:01 | disposition home or self-care (01) | DRG 331 ==
LOC: J2C 05:12 → EDSTATUS 08:00 → J8W 18:15
PROVIDERS: ADMIT Surgery; ATTEND Internal Medicine
PROC: 0T9B80Z Drainage of Bladder with Drainage Device, Via Natural or Artificial Opening Endoscopic (ICD-10-PCS; 2024-02-04)
PROC: 0TJB8ZZ Inspection of Bladder, Via Natural or Artificial Opening Endoscopic (ICD-10-PCS; 2024-02-04)
PROC: 0DTNFZZ Resection of Sigmoid Colon, Via Natural or Artificial Opening With Percutaneous Endoscopic Assistance (ICD-10-PCS; principal; 2024-02-04 08:00)
PROC: 0T784DZ Dilation of Bilateral Ureters with Intraluminal Device, Percutaneous Endoscopic Approach (ICD-10-PCS; 2024-02-04 08:00)
DX: K57.92 Diverticulitis of intestine, part unspecified, without perforation or abscess without bleeding (principal); E66.9 Obesity, unspecified; Z68.34 Body mass index [BMI] 34.0-34.9, adult; R31.9 Hematuria, unspecified
CPT/HCPCS: 36415; 80048; 80053; 83735; 85025; 85027; 86140; 86922; 88307-TC; 94760; J0131; J0475; J1100

== ENCOUNTER 2024-03-01 15:31 | Emergency (ER) | payer BC, OTHER ==
[2024-03-01 15:36] VITALS: BP 157/107; PULSE 90; RESP 20; TEMP 99.7; BMI 34.8
[2024-03-01 17:27] LABS: BASO % 1.2 % (0-2.0); EOS % 3.6 % (0-4.5); HEMATOCRIT 42.9 % (35.4-49); HEMOGLOBIN 14.7 GM/dL (11.7-16.9); LYMPH % 26.1 % (8-40); MCH 30.1 pg (25.7-33.7); MCHC 34.4 g/dl (32.0-35.9); MEAN CELL VOLUME 87.7 fl (80-96); MEAN PLT VOLUME 7.4 fl (7.5-11.1); MONO % 7.2 % (3.8-10.2); NEUT % 61.9 % (42.8-82.8); PLATELET COUNT 237 10^3/uL (134-434); RBC 4.89 M/mm3 (4.00-5.60); RDW 14.3 % (11.9-15.9); WHITE BLOOD COUNT 6.1 K/mm3 (4.0-10.0)
[2024-03-01] MEDS ORDERED: ACETAMINOPHEN 325 MG TABLET (FP) ONE (17:33)
[2024-03-01 17:42] LABS: POTASSIUM 3.8 mmol/L (3.5-5.1)
[2024-03-01] MEDS: ACETAMINOPHEN 325 MG TABLET (FP) PO ONE (17:43)
[2024-03-01 17:44] LABS: ALBUMIN 4.4 g/dl (3.4-5.0); CALCIUM 9.3 mg/dL (8.5-10.1)
[2024-03-01 17:47] LABS: CREATININE 0.9 mg/dL (0.55-1.3)
[2024-03-01 17:49] LABS: BILIRUBIN,TOTAL 0.6 mg/dL (0.2-1); TOT PROT 7.4 g/dl (6.4-8.2)
[2024-03-01 18:38] LABS: HIV INTERPRETATION NEGATIVE (NEGATIVE)
== END 2024-03-01 18:44 | disposition home or self-care (01) ==
LOC: JER 15:31
DX: R50.9 Fever, unspecified (principal); R05.9 Cough, unspecified; R53.81 Other malaise; U07.1 COVID-19
CPT/HCPCS: 0241U-QW; 36415; 71046-TC-FY; 74177-TC; 80053; 85025; 86140; 86803; 87389; 99285-25; Q9967

== ENCOUNTER 2024-12-02 19:28 | Emergency (ER) | payer BC ==
[2024-12-02 19:37] VITALS: BP 136/64; PULSE 52; RESP 16; TEMP 98.7; BMI 33.9
[2024-12-02] MEDS ORDERED: KETOROLAC TROMETHAMINE 30 MG/1 ML VIAL IM ONE (20:37)
[2024-12-02] MEDS ORDERED: METOCLOPRAMIDE HCL INJECTION 10 MG/2 ML VIAL IM ONE (20:37)
[2024-12-02] MEDS ORDERED: METOCLOPRAMIDE HCL INJECTION 10 MG/2 ML VIAL ONE (20:40)
[2024-12-02] MEDS ORDERED: KETOROLAC TROMETHAMINE 30 MG/1 ML VIAL ONE (20:40)
== END 2024-12-02 20:34 | disposition home or self-care (01) ==
LOC: JERFT 19:28 → JER 19:28 → JERFT 20:34
DX: T18.9XXA Foreign body of alimentary tract, part unspecified, initial encounter (principal); G43.909 Migraine, unspecified, not intractable, without status migrainosus
CPT/HCPCS: 99283-25